=== PATIENT | male | born 1945 | race Caucasian/White ===

== ENCOUNTER → 2021-07-04 12:25 | Outpatient (CLI) | payer BC, SELFPAY ==
[2021-07-04 19:05] LABS: Alanine Aminotransferase 18 IU/L (<50); Albumin 4.2 g/dL (3.5-5.0); Albumin Globulin Ratio 1.6 (1.0-2.8); Alkaline Phosphatase 57 U/L (38-126); Aspartate Aminotransferase 25 IU/L (17-59); BUN Creatinine Ratio 20.2 (6-22); Bilirubin Total 0.9 mg/dL (0.2-1.3); Blood Urea Nitrogen 18 mg/dL (9-20); Calcium 9.4 mg/dL (8.4-10.2); Carbon Dioxide 29 mmol/L (22-32); Chloride 100 mmol/L (98-107); Cholesterol 210 mg/dL (140-199); Estimated Glomerular Filt Rate > 60.0 mL/min (>60); Globulin 2.7 g/dL (1.7-4.1); Glucose 94 mg/dL (80-110); HDL Cholesterol 34 mg/dL (40-60); HEMOLYSIS < 15 (0-50); LDL Cholesterol Calculated 148 mg/dL (<100); Potassium 3.7 mmol/L (3.4-5.1); Sodium 139 mmol/L (137-145); Total Protein 6.9 g/dL (6.3-8.2); Triglycerides 139 mg/dL (35-150)
== END ==
PROVIDERS: PCP Family Medicine; Referring Provider Family Medicine; Visit Provider Family Medicine
DX: E78.5 Hyperlipidemia, unspecified (principal); I10 Essential (primary) hypertension; K21.9 Gastro-esophageal reflux disease without esophagitis; N40.0 Benign prostatic hyperplasia without lower urinary tract symptoms; Z12.5 Encounter for screening for malignant neoplasm of prostate
CPT/HCPCS: 80053; 80061; G0103

== ENCOUNTER → 2022-10-20 10:31 | Outpatient (CLI) | payer BC, SELFPAY ==
[2022-10-20 18:58] LABS: Add Manual Diff / Slide Review NO; Basophils Absolute Auto 100 /uL (0-100); Basophils Percent Auto 0.8 % (0-2); Eosinophils Absolute Auto 200 /uL (0-450); Eosinophils Percent Auto 2.8 % (2-4); Hematocrit 41.9 % (41-53); Hemoglobin 14.7 g/dL (13.5-17.5); Lymphocytes Absolute Auto 1400 /uL (1100-4500); Lymphocytes Percent Auto 19.8 % (25-40); Mean Corpuscular HGB Conc 35.1 % (30-36); Mean Corpuscular Hemoglobin 29.3 PG (26-34); Mean Corpuscular Volume 83.5 fL (80-100); Monocytes Absolute Auto 500 /uL (0-900); Monocytes Percent Auto 7.2 % (3-14); Neutrophils Absolute Auto 4700 /uL (1500-7000); Neutrophils Percent Auto 69.4 % (50-75); Platelet Count 239 X10^3/uL (150-400); Red Blood Cell Count 5.02 X10^6/uL (4.5-5.9); Red Cell Distribution Width 14.4 % (11.6-14.8); White Blood Cell Count 6.8 X10^3/uL (4.5-11.0)
[2022-10-20 19:12] LABS: Alanine Aminotransferase 25 IU/L (<50); Albumin Globulin Ratio 1.3 (1.0-2.8); Alkaline Phosphatase 56 U/L (38-126); Aspartate Aminotransferase 28 IU/L (17-59); BUN Creatinine Ratio 16.9 (6-22); Blood Urea Nitrogen 15 mg/dL (9-20); Calcium 9.1 mg/dL (8.4-10.2); Carbon Dioxide 34 mmol/L (22-32); Chloride 98 mmol/L (98-107); Cholesterol 204 mg/dL (140-199); Estimated Glomerular Filt Rate > 60 mL/min (>60); Glucose 100 mg/dL (80-110); HDL Cholesterol 38 mg/dL (40-60); HEMOLYSIS < 15 (0-50); LDL Cholesterol Calculated 142 mg/dL (<100); Potassium 3.8 mmol/L (3.4-5.1); Sodium 140 mmol/L (137-145); Triglycerides 120 mg/dL (35-150)
[2022-10-20 19:41] LABS: Prostate Specific Antigen 3.65 ng/mL (0.10-4.00)
== END ==
PROVIDERS: PCP Family Medicine; Visit Provider Family Medicine
DX: E78.5 Hyperlipidemia, unspecified (principal); I10 Essential (primary) hypertension; N19 Unspecified kidney failure; N40.0 Benign prostatic hyperplasia without lower urinary tract symptoms
CPT/HCPCS: 80053; 80061; 84153; 85025

== ENCOUNTER → 2023-10-25 10:11 | Outpatient (CLI) | payer BC, SELFPAY ==
[2023-10-25 19:41] LABS: Alanine Aminotransferase 14 IU/L (<50); Albumin 3.9 g/dL (3.5-5.0); Albumin Globulin Ratio 1.3 (1.0-2.8); Alkaline Phosphatase 46 U/L (38-126); Aspartate Aminotransferase 22 IU/L (17-59); BUN Creatinine Ratio 18.6 (6-22); Blood Urea Nitrogen 16 mg/dL (9-20); Calcium 9.7 mg/dL (8.4-10.2); Carbon Dioxide 31 mmol/L (22-32); Chloride 100 mmol/L (98-107); Cholesterol 149 mg/dL (140-199); Estimated Glomerular Filt Rate > 60 mL/min (>60); Globulin 2.9 g/dL (1.7-4.1); Glucose 93 mg/dL (80-110); HDL Cholesterol 33 mg/dL (40-60); HEMOLYSIS < 15 (0-50); LDL Cholesterol Calculated 99 mg/dL (<100); Potassium 3.7 mmol/L (3.4-5.1); Sodium 138 mmol/L (137-145); Total Protein 6.8 g/dL (6.3-8.2); Triglycerides 85 mg/dL (35-150)
[2023-10-25 20:08] LABS: Prostate Specific Antigen 2.29 ng/mL (0.10-4.00)
== END ==
PROVIDERS: PCP Family Medicine; Visit Provider Family Medicine
DX: R97.20 Elevated prostate specific antigen [PSA] (principal); E78.00 Pure hypercholesterolemia, unspecified
CPT/HCPCS: 80053; 80061; 84153

== ENCOUNTER → 2024-01-25 09:44 | Outpatient (CLI) | payer BC, SELFPAY ==
[2024-01-28 14:01] LABS: Fecal Immunochemical Test Negative (Negative)
== END ==
LOC: LAB 05-15 09:42
PROVIDERS: PCP Family Medicine; Referring Provider Family Medicine; Visit Provider Family Medicine
DX: Z12.11 Encounter for screening for malignant neoplasm of colon (principal)
CPT/HCPCS: 82274

== ENCOUNTER → 2024-12-22 08:58 | Outpatient (CLI) | payer BC, SELFPAY ==
[2024-12-22 18:24] LABS: Add Manual Diff / Slide Review NO; Basophils Absolute Auto 0 /uL (0-100); Basophils Percent Auto 0.7 % (0-2); Eosinophils Absolute Auto 200 /uL (0-450); Eosinophils Percent Auto 3.5 % (2-4); Hematocrit 43.2 % (41-53); Lymphocytes Absolute Auto 900 /uL (1100-4500); Lymphocytes Percent Auto 14.2 % (25-40); Mean Corpuscular HGB Conc 34.8 % (30-36); Mean Corpuscular Hemoglobin 29.8 PG (26-34); Mean Corpuscular Volume 85.6 fL (80-100); Monocytes Absolute Auto 500 /uL (0-900); Monocytes Percent Auto 7.4 % (3-14); Neutrophils Absolute Auto 4900 /uL (1500-7000); Neutrophils Percent Auto 74.2 % (50-75); Platelet Count 207 X10^3/uL (150-400); Red Blood Cell Count 5.05 X10^6/uL (4.5-5.9); Red Cell Distribution Width 14.3 % (11.6-14.8); White Blood Cell Count 6.6 X10^3/uL (4.5-11.0)
[2024-12-22 18:42] LABS: Albumin 4.4 g/dL (3.5-5.0); Chloride 101 mmol/L (98-107); Potassium 3.7 mmol/L (3.4-5.1); Sodium 140 mmol/L (137-145)
[2024-12-22 18:57] LABS: Alanine Aminotransferase 17 IU/L (<50); Albumin Globulin Ratio 1.8 (1.0-2.8); Alkaline Phosphatase 49 U/L (38-126); Aspartate Aminotransferase 30 IU/L (17-59); BUN Creatinine Ratio 17.6 (6-22); Bilirubin Total 1.3 mg/dL (0.2-1.3); Blood Urea Nitrogen 16 mg/dL (9-20); Calcium 9.4 mg/dL (8.4-10.2); Carbon Dioxide 29 mmol/L (22-32); Cholesterol 166 mg/dL (140-199); Estimated Glomerular Filt Rate > 60 mL/min (>60); Globulin 2.4 g/dL (1.7-4.1); Glucose 98 mg/dL (80-110); HDL Cholesterol 39 mg/dL (40-60); HEMOLYSIS 18 (0-50); LDL Cholesterol Calculated 109 mg/dL (<100); Total Protein 6.8 g/dL (6.3-8.2); Triglycerides 89 mg/dL (35-150)
[2024-12-22 19:15] LABS: Prostate Specific Antigen Scrn 2.11 ng/mL (0.1-4.0)
== END ==
PROVIDERS: PCP Family Medicine; Visit Provider Family Medicine
DX: R97.20 Elevated prostate specific antigen [PSA] (principal); E78.5 Hyperlipidemia, unspecified; N40.0 Benign prostatic hyperplasia without lower urinary tract symptoms; I10 Essential (primary) hypertension; Z12.5 Encounter for screening for malignant neoplasm of prostate
CPT/HCPCS: 80053; 80061; 84443; 85025; G0103

== ENCOUNTER → 2025-08-22 08:46 | Outpatient (CLI) | payer BC, SELFPAY ==
--- NOTE | 2025-08-22 08:48 | DI.ECHO.S_ITS ---
[place] [facility] : : [id number] : : [place] : : [id number] : : Phone: [phone] Echocardiogram Report + + :Name: MARIANN BANERJEE Study Date: 08/22/2025 Height: 74 in : :[facility] ReadingLocation: Weight: 230 lb : : Gender: Male BSA: 2.3 m2 : :: 1945 Age: 79 yrs BP: 144/90 mmHg: :Reason For Study: Screening pre op : :Ordering Physician: MOOSE, : :FREDDY Performed By: Tyler White : :Referring: FREDDY IVRK : + + Interpretation Summary Sinus bradycardia with HR 54 bpm. Normal LV size and mildly increased wall thickness; normal wall motion and LV systolic function. EF is 60-65%. Mild LA enlargement; otherwise normal chamber sizes. Mild aortic regurgitation; otherwise no significant valve abnormalities. No prior echo available for comparison. Procedure: A two-dimensional transthoracic echocardiogram with color flow and Doppler was performed. The study quality was technically adequate. There is no prior echocardiogram noted for this patient. The patient was in normal sinus rhythm during the exam. Left Ventricle: The left ventricle is normal in size. Left ventricular wall thickness is mildly increased. Left ventricular systolic function is normal. The ejection fraction is estimated to be 60-65%. There are no focal wall motion abnormalities. Normal diastolic function. Right Ventricle: The right ventricle is normal in size and function. Atria: The left atrium is mildly dilated. The right atrium is normal in size. There is no Doppler evidence for an interatrial shunt. Mitral Valve: The mitral valve leaflets appear to open well. There is no evidence of mitral valve prolapse. There is no mitral valve stenosis. There is mild mitral regurgitation. Aortic Valve: The aortic valve is trileaflet. The aortic valve opens well. There is no aortic valve stenosis. There is mild aortic regurgitation. Tricuspid Valve: The tricuspid valve is not well visualized, but is grossly normal. There is mild tricuspid regurgitation. The right ventricular systolic pressure is estimated to be at least 25 mmHg based on an estimated right atrial pressure of 3 mm Hg. Pulmonic Valve: The pulmonic valve is not well seen, but is grossly normal. There is trace pulmonic regurgitation. Great Vessels: The aortic root is normal size. The ascending aorta is normal in size. The aortic arch could not be visualized. The pulmonary is not well visualized. The IVC is of normal diameter and collapses greater than 50% with a sniff. This suggests a low right atrial pressure of 3 mm Hg. Pericardium/ Pleura There is no pericardial effusion. MMode/2D Measurements & Calculations LVIDd: 5.7 cm LVOT diam: 2.1 cm LVIDs: 3.5 cm Ao root diam: 3.8 cm FS: 38.2 % asc Aorta Diam: 3.4 cm IVSd: 1.1 cm LVPWd: 1.1 cm LV chacon. diameter/BSA (cm/m^2): 2.5 LV sys. diameter/BSA (cm/m^2): 1.5 LA A2 area: 27.3 cm2 IVC diam: 1.8 cm LA A4 area: 22.4 cm2 LA length (vol): 6.2 cm LA vol: 84.0 ml LA vol index: 36.4 ml/m2 RVD1 (basal): 3.3 cm RVD2 (mid): 2.6 cm TAPSE: 2.2 cm Doppler Measurements & Calculations Ao V2 max: 147.7 cm/sec LVOT Max Glen: 99.9 cm/sec Ao V2 mean: 100.1 cm/sec LV V1 max P.0 mmHg Ao max P.7 mmHg LV V1 VTI: 23.6 cm Ao mean P.5 mmHg EVE(I,D): 2.6 cm2 Ao V2 VTI: 32.9 cm EVE(V,D): 2.4 cm2 sev ratio: 0.72 EVE indexed to BSA (cm^2/m^2): 1.1 AI P1/2t: 748.6 msec AI dec slope: 166.1 cm/sec2 MV E max glen: 88.4 cm/sec TR max glen: 236.8 cm/sec MV A max glen: 58.8 cm/sec TR max P.4 mmHg MV E/A: 1.5 PA V2 max: 75.1 cm/sec MV dec time: 0.14 sec PA V2 mean: 55.2 cm/sec PA mean P.3 mmHg PA pr(Accel): 22.5 mmHg SV(LVOT): 85.0 ml Electronically signed by: Inés Ferguson M.D. on Reading Physician:08/23/2025 02:36 AM
== END ==
LOC: ECHO 08:47
PROVIDERS: PCP Family Medicine; Referring Provider Family Medicine; Visit Provider Family Medicine
DX: I08.3 Combined rheumatic disorders of mitral, aortic and tricuspid valves (principal)
CPT/HCPCS: 93306